=== PATIENT | male | born 1975 | race Caucasian/White ===

== ENCOUNTER → 2016-10-09 | Outpatient (CLI) | payer BC ==
--- NOTE | 2016-10-09 11:50 | DX ---
Right Ankle, 3 Views HISTORY: Woke up with pain. Difficulty walking. FINDINGS: Adjacent to the medial malleolus, there is a well-corticated ovoid 6 mm bone fragment which is likely from old trauma. Adjacent to the lateral malleolus between the talofibular region, there i s a 5 mm bone fragment also likely representing old trauma. 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 No widening of the ankle mortise. Talar dome appears intact. No t ibiotalar joint space narrowing. IMPRESSION: 1. Probable old right ankle trauma with small bone fragments adjacent to the medial and lateral malle lissy and interosseous calcifications. 2. No definite acute fracture or widening of the ankle mortise. 3. No definite talar dome osteochondral lesion or degenerative joint space narrowing. 4. Consider MRI imaging for further evaluation. Cosigned: Dr. Yanick Gross
== END ==
LOC: BRMIMAGING 10:40
PROVIDERS: ATTEND Physician Assistant Medical
DX: R93.7 Abnormal findings on diagnostic imaging of other parts of musculoskeletal system (principal); M25.871 Other specified joint disorders, right ankle and foot
CPT/HCPCS: 73610-PO